=== PATIENT | female | born 1965 | race African-American/Black ===

== ENCOUNTER 2019-10-07 15:51 | Emergency (ER) | payer MEDICAID, OTHER ==
[~2019-10-07] VITALS: Ht 165.1 cm; Wt 108.9 kg
[2019-10-07 17:15] VITALS: BP 152/91
[2019-10-07] MEDS ORDERED: KETOROLAC TROMETH 60MG/2ML VIAL IM ONE (18:00)
== END 2019-10-07 18:16 | disposition home or self-care (01) ==
LOC: ER 15:51
DX: S46.811A Strain of other muscles, fascia and tendons at shoulder and upper arm level, right arm, initial encounter (principal); X58.XXXA Exposure to other specified factors, initial encounter; Y93.89 Activity, other specified; Y92.89 Other specified places as the place of occurrence of the external cause; Y99.8 Other external cause status
CPT/HCPCS: 96372; 99283; J1885

== ENCOUNTER 2022-12-30 13:03 | Emergency (ER) | payer MEDICAID ==
[~2022-12-30] VITALS: Ht 167.6 cm; Wt 99.5 kg
[2022-12-30 14:26] VITALS: BP 139/77; PULSE 87; RESP 18; TEMP 98; O2SAT 97
[2022-12-30] MEDS ORDERED: IBUP-1456 PO (14:55)
[2022-12-30] MEDS ORDERED: KETOROLAC TROMETH 60MG/2ML VIAL IM ONE (15:00)
== END 2022-12-30 16:46 | disposition home or self-care (01) ==
LOC: ER 13:03
DX: M17.11 Unilateral primary osteoarthritis, right knee (principal); Z79.1 Long term (current) use of non-steroidal anti-inflammatories (NSAID)
CPT/HCPCS: 73562; 96372; 99283; J1885